=== PATIENT | female | born 2000 | race Caucasian/White ===

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

== ENCOUNTER 2023-01-22 14:46 | Outpatient (CLI) | payer MEDICAID, SELFPAY ==
--- NOTE | 2023-01-22 14:54 | US_ITS ---
WS: [id number] Pelvic ultrasound, 01/22/2023 Clinical Data: EXCESSIVE AND FREQUENT MENSTRUATION WITH REGULAR CYCLE Comparison: None. Findings: The uterus measures 6.1 cm x 3.5 cm x 2.7 cm. The endometrium is 0.3 cm. No intrauterine or abnormal intrauterine mass is seen. The left ovary measures 1.9 cm x 1.0 cm x 1.7 cm with no cysts or masses. The right ovary measures 1.4 cm x 1.4 cm x 1.2 cm with no cysts or masses. There is no fluid in the cul-de-sac. US/US pelvic complete* [id number] Impression: Negative pelvic ultrasound.
== END 2023-01-22 14:47 | disposition home or self-care (01) ==
PROVIDERS: PCP Family Medicine; Visit Provider Nurse Practitioner Family
DX: N92.0 Excessive and frequent menstruation with regular cycle (principal); N92.6 Irregular menstruation, unspecified
CPT/HCPCS: 76856

== ENCOUNTER → 2023-04-14 11:54 | Outpatient (BNVA) | payer MEDICAID, SELFPAY | PROVIDERS: PCP Family Medicine; Visit Provider Nurse Practitioner Family | DX: R69 Illness, unspecified (principal); R07.89 Other chest pain; B34.9 Viral infection, unspecified; R06.02 Shortness of breath | CPT/HCPCS: 87400; 87426 ==